=== PATIENT | female | born 1985 | race Caucasian/White ===

== ENCOUNTER 2017-03-11 19:32 | Emergency (ER) | payer OTHER ==
[~2017-03-11] VITALS: Ht 162.6 cm; Wt 45.4 kg
[2017-03-11] MEDS ORDERED: METROGEL-VAGINA70 G1 VAGIN (20:21)
[2017-03-11 20:28] VITALS: BP 116/70
[2017-03-11 20:28] LABS: APPEARANCE,URINE CLEAR; KETONES,URINE 1+ (NEGATIVE); LEUKOCYTE ESTERASE ,URINE 1+ (NEGATIVE); NITRITE,URINE NEGATIVE (NEGATIVE); PH,URINE 5 (4.5-8.0); PROTEIN,URINE 1+ (NEGATIVE); UROBILINOGEN,URINE NORMAL MG/DL (0.0-1.0)
[2017-03-11 20:29] VITALS: BP 116/70
[2017-03-11] MEDS ORDERED: Fluconazole 100mg tab ORAL ONE (20:30)
[2017-03-11 20:34] LABS: BACTERIA,URINE FEW /HPF; CALCIUM OXALATE CRYSTALS,UR FEW /LPF; RBC,URINE 0-2 /HPF (0 - 2); SQUAMOUS EPITHELIAL CELL,UR FEW /LPF (NONE/OCC)
--- NOTE | 2017-03-11 23:45 | Emergency Room Report ---
History of Present Illness General Chief Complaint: Abdominal Pain Source: Patient Present Illness HPI Patient 31-year-old female presented after increased vaginal itching and mild discomfort. Patient reported having recently taken Diflucan for vaginitis. This had not improved. Patient denied having white discharge. Patient stated that she had intermittent symptoms. She had not been vomiting. She denied any fevers. She reported having some mild dysuria Allergies: Coded Allergies: No Known Allergies (Unverified , 03/11/17) Patient History Past Medical History: see triage record Now: No Reviewed Nursing Documentation: PMH: Agreed, PSxH: Agreed Nursing Documentation-PMH Past Medical History: No Stated History Review of Systems All Other Systems: negative except mentioned in HPI Physical Exam Vital Signs Date Time Temp Pulse Resp B/P Pulse Ox O2 Delivery O2 Flow Rate FiO2 03/11/17 19:51 98.1 68 16 118/70 98 Room Air Sp02 EP Interpretation: reviewed, normal General Appearance: normal inspection, well appearing, no apparent distress, alert, GCS 15 Head: atraumatic ENT: normal ENT inspection, hearing grossly normal, normal voice Neck: normal inspection, full range of motion, supple, no bony tend Respiratory: normal inspection, lungs clear, normal breath sounds, no respiratory distress, no retraction, no wheezing Cardiovascular #1: regular rate, rhythm, no edema Gastrointestinal: normal inspection, normal bowel sounds, non tender, soft, no guarding, no hernia Genitourinary: no CVA tenderness Musculoskeletal: normal inspection, back normal, normal range of motion Neurologic: normal inspection, alert, responsive, speech normal Psychiatric: normal inspection, judgement/insight normal, mood/affect normal Skin: normal inspection, normal color, no rash Medical Decision Making Diagnostic Impression: Primary Impression: Vaginitis ER Course Patient presented for dysuria. Differential diagnosis included was not limited to appendicitis, urinary tract infection, pelvic inflammatory disease, urethritis, herpes among others. Patient's benign exam and does not appear to require any further imaging or laboratory testing at this time. Patient given oral Diflucan. A urinalysis showed no evidence of definite infection. Patient given prescription for MetroGel The patient is advised to follow up with primary care doctor in 1-2 days. Patient is advised to return if any worsening condition or if any changes in status that are concerning. Labs Test 03/11/17 18:00 Urine Color Yellow Urine Appearance Clear Urine pH 5 (4.5-8.0) Urine Specific [place] 1.025 (1.005-1.035) Urine Protein 1+ (NEGATIVE) Urine Glucose (UA) Negative (NEGATIVE) Urine Ketones 1+ (NEGATIVE) Urine Occult Blood Negative (NEGATIVE) Urine Nitrite Negative (NEGATIVE) Urine Bilirubin Negative (NEGATIVE) Urine Urobilinogen Normal MG/DL (0.0-1.0) Urine Leukocyte Esterase 1+ (NEGATIVE) Urine RBC 0-2 /HPF (0 - 2) Urine WBC 2-4 /HPF (0 - 2) Urine Squamous Epithelial Cells Few /LPF (NONE/OCC) Urine Calcium Oxalate Crystals Few /LPF (NONE) Urine Bacteria Few /HPF (NONE) Urine HCG, Qualitative Negative Last Vital Signs Date Time Temp Pulse Resp B/P Pulse Ox O2 Delivery O2 Flow Rate FiO2 03/11/17 20:29 98.1 80 16 116/70 98 Room Air Status: improved Disposition: HOME, SELF-CARE Condition: Stable Scripts Metronidazole* (METROGEL-VAGINAL*) 70 Gm Gel.w.appl 1 APPL VAGIN BEDTIME for 7 Days, GM Prov: Santo Galvan 03/11/17 Referrals: NON PHYSICIAN (PCP) Patient Instructions: Santo Poe Mar 11, 2017 23:45
== END 2017-03-11 22:00 | disposition home or self-care (01) ==
LOC: EMR 21:32
DX: N76.0 Acute vaginitis (principal)
CPT/HCPCS: 81003; 81025; 99283

== ENCOUNTER 2017-04-04 11:33 | Emergency (ER) | payer OTHER ==
[~2017-04-04] VITALS: Ht 167.6 cm; Wt 49.9 kg
[~2017-04-04 11:33] MED LIST: METROGEL-VAGINA70 G1 VAGIN
[2017-04-04 12:08] VITALS: BP 99/66
[2017-04-04 13:02] LABS: APPEARANCE,URINE CLEAR; KETONES,URINE NEGATIVE (NEGATIVE); LEUKOCYTE ESTERASE ,URINE 3+ (NEGATIVE); NITRITE,URINE POSITIVE (NEGATIVE); PH,URINE 5 (4.5-8.0); PROTEIN,URINE 1+ (NEGATIVE); UROBILINOGEN,URINE 4 MG/DL (0.0-1.0)
[2017-04-04 13:20] LABS: AMORPHOUS SEDIMENT,UR FEW /LPF; BACTERIA,URINE FEW /HPF; ICTOTEST NEGATIVE; MUCUS,URINE MODERATE /LPF (NONE/OCC); SQUAMOUS EPITHELIAL CELL,UR OCCASIONAL /LPF (NONE/OCC)
[2017-04-04] MEDS ORDERED: Fluconazole 100mg tab ORAL ONE (13:30)
--- NOTE | 2017-04-04 13:30 | Emergency Room Report ---
History of Present Illness General Chief Complaint: Female Urogenital Problems Source: Patient Present Illness HPI 31 YO Female presents to the ED c/O dysuria, vaginal burning and itching with pelvic discomfort 6/10 in severity and thick white d/c x 3 days. Pt reports being monogamous with her BF of 5 years and was recently tested for STD's which was negative. pt. reports she has frequent vaginal yeast infections, and last time was a month ago. pt. reports external and internal vaginal itching and sensitivity. pt. denies dyspareunia but states her skin is very sensitive which makes intercourse uncomfortable. pt. denies N/V/F/C, constipation or diarrhea. pt. denies . pt. denies blood in the urine. pt. states she just used an over the counter vaginal yeast cream last night with no relief. Denies joint pain. pt. denies lesions, blisters, or swollen tender palpable lymph nodes. Denies CP, Palpitations, LOC, AMS, dizziness, Changes in Vision, Sensation, paresthesias, or a sudden severe headache. Allergies: Coded Allergies: No Known Allergies (Unverified , 03/11/17) Patient History Past Medical History: see triage record Past Surgical History: none Pertinent Family History: none Last Menstrual Period: 03/28/17 Now: No Immunizations: UTD Reviewed Nursing Documentation: PMH: Agreed, PSxH: Agreed Nursing Documentation-PMH Past Medical History: No Stated History Review of Systems All Other Systems: negative except mentioned in HPI Physical Exam Vital Signs Date Time Temp Pulse Resp B/P Pulse Ox O2 Delivery O2 Flow Rate FiO2 04/04/17 11:37 98.1 81 15 99/66 99 Room Air Sp02 EP Interpretation: reviewed, normal General Appearance: no apparent distress, alert, GCS 15, non-toxic Head: normocephalic, atraumatic Eyes: bilateral eye PERRL, bilateral eye normal inspection ENT: hearing grossly normal, no angioedema, normal voice Neck: full range of motion Respiratory: lungs clear, normal breath sounds, speaking full sentences Cardiovascular #1: regular rate, rhythm, no edema Gastrointestinal: normal bowel sounds, non tender, soft, no guarding, no rebound Rectal: deferred Genitourinary: normal inspection, no CVA tenderness, adnexa normal, bladder normal, cervix normal, other - the bilateral external vaginal labia are erythematous and have superficial tenderness with mild macertated appearance. no CMT, Thick white vaginal d/c as well as light green thin d/c noted. Musculoskeletal: back normal, gait/station normal, normal range of motion, non- tender Neurologic: alert, oriented x3, responsive, motor strength/tone normal, sensory intact, speech normal Psychiatric: judgement/insight normal, memory normal, mood/affect normal Skin: normal color, warm/dry, well hydrated, rash - the bilateral external vaginal labia are erythematous and have superficial tenderness with mild macertated appearance. Medical Decision Making PA Attestation Dr. Garay is my supervising Physician whom patient management has been discussed with. Diagnostic Impression: Primary Impression: UTI (urinary tract infection) Qualified Codes: N30.01 - Acute cystitis with hematuria Additional Impression: Vaginitis Qualified Codes: N76.0 - Acute vaginitis ER Course 31 YO Female presents to the ED c/O dysuria, vaginal burning and itching with pelvic discomfort 6/10 in severity and thick white d/c x 3 days. Pt reports being monogamous with her BF of 5 years and was recently tested for STD's which was negative. pt. reports she has frequent vaginal yeast infections, and last time was a month ago. pt. reports external and internal vaginal itching and sensitivity. pt. denies dyspareunia but states her skin is very sensitive which makes intercourse uncomfortable. pt. denies N/V/F/C, constipation or diarrhea. pt. denies . pt. denies blood in the urine. pt. states she just used an over the counter vaginal yeast cream last night with no relief. Denies joint pain. pt. denies lesions, blisters, or swollen tender palpable lymph nodes. Denies CP, Palpitations, LOC, AMS, dizziness, Changes in Vision, Sensation, paresthesias, or a sudden severe headache. Ddx considered but are not limited to UTi , Pyelo, STI, Stone, Cystitis, vaginal laceration, vaginitis. Vital signs: are WNL, pt. is afebrile H& PE are most consistent with: vaginitis and suspicious for BV, will do wet mount, UA and urine preg. ORDERS: - UA labs are attached - Nitrite positive, elevated WBC's and Leuks with bacteria present. -Urine HCG: negative -Wet mount : negative trich, clue cells, yeast. moderate bacteria ED INTERVENTIONS: -Diflucan PO d/w pt. the results of her laboratory work and that she will be treated clinically for yeast and BV , and that urine was notable for UTI. DISCHARGE: At this time pt. is stable for d/c to home. Will provide printed patient care instructions, and any necessary prescriptions. Care plan and follow up instructions have been discussed with the patient prior to discharge. Labs Test 04/04/17 12:20 Urine Color [place] Urine Appearance Clear Urine pH 5 (4.5-8.0) Urine Specific [place] 1.025 (1.005-1.035) Urine Protein 1+ (NEGATIVE) Urine Glucose (UA) Negative (NEGATIVE) Urine Ketones Negative (NEGATIVE) Urine Occult Blood 2+ (NEGATIVE) Urine Nitrite Positive (NEGATIVE) Urine Bilirubin 2+ (NEGATIVE) Urine Ictotest Negative Urine Urobilinogen 4 MG/DL (0.0-1.0) Urine Leukocyte Esterase 3+ (NEGATIVE) Urine RBC 5-10 /HPF (0 - 2) Urine WBC 5-10 /HPF (0 - 2) Urine Squamous Epithelial Cells Occasional /LPF Urine Amorphous Sediment Few /LPF (NONE) Urine Bacteria Few /HPF (NONE) Urine Mucus Moderate /LPF (NONE/OCC) Urine HCG, Qualitative Negative Last Vital Signs Date Time Temp Pulse Resp B/P Pulse Ox O2 Delivery O2 Flow Rate FiO2 04/04/17 12:08 98.1 76 15 99/66 99 Room Air Disposition: HOME, SELF-CARE Condition: Stable Scripts Fluconazole (FLUCONAZOLE) 100 Mg Tablet 100 MG ORAL DAILY for 3 Days, #3 TAB 0 Refills Prov: Whit Blackman 04/04/17 Metronidazole* (METROGEL-VAGINAL*) 70 Gm Gel.w.appl 1 APPL VAGIN BEDTIME for 5 Days, #5 GM Prov: Whit Blackman 04/04/17 Nitrofurantoin Monohyd/M-Cryst* (MACROBID 100 MG*) 100 Mg Capsule 100 MG ORAL EVERY 12 HOURS for 5 Days, #10 CAP Prov: Whit Blackman 04/04/17 Referrals: NOT CHOSEN IPA/MD,REFERRING (PCP) Patient Instructions: Vaginitis, Urinary Tract Infection Additional Instructions: Take medications as directed. Follow up with a Primary Care Provider in 3-5 days, even if your symptoms have resolved. --Please review list of primary care clinics, if you do not already have a primary care provider Return sooner to ED if new symptoms occur, or current symptoms become worse. - Please note that this Emergency Department Report was dictated using As Seen on [employer] processer storage technology software, occasionally this can lead to erroneous entry secondary to interpretation by the dictation equipment. Whit Blackman Apr 04, 2017 13:30
[2017-04-04] MEDS ORDERED: NITROFURANTOIN100 M2 ORAL (14:38)
[2017-04-04] MEDS ORDERED: METROGEL-VAGINA70 G1 VAGIN (14:38)
[2017-04-04] MEDS ORDERED: FLUCONAZOLE100 MG ORAL (14:38)
[2017-04-04 15:12] VITALS: BP 101/67
== END 2017-04-04 15:14 | disposition home or self-care (01) ==
LOC: EMR 12:05
DX: N30.01 Acute cystitis with hematuria (principal); N76.0 Acute vaginitis
CPT/HCPCS: 81003; 81025; 87210; 99284